=== PATIENT | female | born 1945 | race Caucasian/White ===

== ENCOUNTER → 2018-06-07 | Outpatient (CLI) | payer BC | LOC: M.RAD 11:41 | DX: J84.10 Pulmonary fibrosis, unspecified (principal); J98.4 Other disorders of lung; J40 Bronchitis, not specified as acute or chronic ==

== ENCOUNTER → 2019-09-12 | Outpatient (CLI) | payer BC | LOC: M.RAD 14:49 | DX: J47.9 Bronchiectasis, uncomplicated (principal); J18.9 Pneumonia, unspecified organism; J98.4 Other disorders of lung; Z88.8 Allergy status to other drugs, medicaments and biological substances ==